=== PATIENT | female | born 1995 | race Caucasian/White ===

== ENCOUNTER → 2017-01-12 | Outpatient (CLI) | payer OTHER | LOC: MC.RAD 07:30 | DX: N63 Unspecified lump in breast (principal) ==

== ENCOUNTER → 2017-07-17 | Outpatient (REF) | LOC: WSOH 15:30 | DX: Z02.89 Encounter for other administrative examinations (principal) ==

== ENCOUNTER → 2017-07-24 | Outpatient (CLI) | payer OTHER | LOC: MC.RAD 07-17 14:15 | DX: N63 Unspecified lump in breast (principal) ==